=== PATIENT | female | born 1955 | race Caucasian/White ===

== ENCOUNTER 2019-12-26 11:54 | Observation (INO) ==
[2019-12-26] MEDS ORDERED: NS 1,000 ML, NS 1,000 ML IV ONE ×2 (12:19)
[2019-12-26 12:48] LABS: URINE SOURCE CLEAN CATCH
[2019-12-26 12:51] LABS: BASO# 0.06 X1000 (0.0-0.2); BASO% 1.2 % (0.0-0.8); EOS# 0.02 X1000 (0.0-0.7); EOS% 0.4 % (0.0-10.0); HEMATOCRIT 45.1 % (37.0-47.0); HEMOGLOBIN 15.7 g/dL (12.0-16.0); LYMPH% 21.4 % (20.5-51.1); MCH 30.6 PG (27-31); MCHC 34.8 g/dL (33-37); MCV 87.9 FL (81-99); MONO# 0.33 X1000 (0.11-0.59); MONO% 6.4 % (1.7-9.3); MPV 11.5 FL (7.4-10.4); NEUT# 3.64 X1000 (1.4-6.5); NEUT% 70.6 % (42.2-75.2); PLT 192 X1000 (130-400); RBC 5.13 XMIL (4.2-5.4); RDW 12.8 % (11.5-14.5); WBC 5.15 X1000 (4.8-10.8)
[2019-12-26 12:52] LABS: BILIRUBIN URINE NEGATIVE (NEGATIVE); BLOOD URINE NEGATIVE (NEGATIVE); COLOR STRAW; GLUCOSE URINE >1000 mg/dL (NEGATIVE); KETONE URINE 10 mg/dL (NEGATIVE); LEUKOCYTES URINE NEGATIVE (NEGATIVE); NITRITE URINE NEGATIVE (NEGATIVE); PROTEIN URINE NEGATIVE (NEGATIVE); SP GRAVITY URINE 1.028; TURBIDITY URINE CLEAR (CLEAR); UROBILINOGEN URINE NORMAL (NORMAL)
[2019-12-26 12:53] LABS: UR EPITHELIAL CELLS <10 /HPF (<10); URINE BACTERIA NEGATIVE /HPF; URINE RBC <10 /HPF (<10); URINE WBC <10 /HPF (<10)
[2019-12-26 12:56] LABS: ACETONE SERUM NEGATIVE (NEGATIVE)
--- NOTE | 2019-12-26 13:02 | Diag Imaging Result Doc PS360 ---
EXAM: CHEST-1 VIEW HISTORY: hyperglycemia TECHNIQUE: Single view COMPARISON: 11/15/2015 FINDINGS: The lungs are well expanded. The heart is not enlarged. The vessels are not distended. There are no infiltrates. No effusion identified. IMPRESSION: Negative exam. Electronically signed by Yohan Casey 12/26/2019 1:00 PM
[2019-12-26 13:05] LABS: AGAP 18; ALB/GLOB RATIO 1.7; ALBUMIN 4.2 g/dL (3.5-5.0); ALKALINE PHOSPHATASE 87 U/L (32-104); BUN 27 mg/dL (8-22); CALCIUM 9.7 mg/dL (8.8-10.2); CHLORIDE 88 mmol/L (98-107); COSMO 300; CREATININE 1.4 mg/dL (0.5-0.9); ESTIMATED GFR 38; GOT 15 U/L (10-30); GPT 26 U/L (10-36); POTASSIUM 4.9 mmol/L (3.5-5.1); SODIUM 127 mmol/L (136-145); TCO2 21 mmol/L (25-35); TOTAL BILIRUBIN 0.32 mg/dL (0.20-1.00); TOTAL PROTEIN 6.7 g/dL (6.3-8.3)
[2019-12-26 13:14] LABS: GLUCOSE 811 mg/dL (70-104)
[2019-12-26] MEDS ORDERED: HUMULIN R IV ONE (13:26)
[2019-12-26] MEDS ORDERED: NS 1,000 ML ONE ×2 (13:29→13:37)
--- NOTE | 2019-12-26 13:35 | PROVIDER DOCUMENTATION ---
This chart was entered by Juana Pena Scribe, acting as scribe for Guillermo Balderrama MD. HPI-General Adult - General Chief Complaint: High Blood Sugar Stated Complaint: HIGH BLOOD SUGAR NEAR SYNCOPE Time Seen by Provider: 12/26/19 12:16 Source: patient Allergies/Adverse Reactions: Patient Allergies Allergy/AdvReac Type Severity Reaction Status Date / Time No Known Allergies Allergy Verified 05/22/17 20:06 Home Medications: Home Medication List Medication Instructions Recorded Confirmed Last Taken Type Sulfamethoxazole/Trimethoprim 1 ea PO BID #20 tab 07/16/19 Unknown Rx [Bactrim Ds Tablet] - History of Present Illness -Gen Adult Nature of Presenting Problems: pt is a 64 yobf c/o high fsbs and poss UTI. pt sts she has been urinating frequently and has had excessive thirst for over a week. pt had labs drawn this am at Dr. Perez' office and sts she got call her fsbs was over 700. pt sts she has had weakness, and head pressure this am. pt has hx of DM. pt had butter grits, scrambled eggs w/florentino red hot, ham and toast w/apple butter this am for breakfast. pt is noncompliant to diet, still drinking regular cokes. Location of Pain/Injury: reports: head Pain Radiation: reports: no radiation Quality of Pain: reports: pressure Severity: reports: mild Onset/Duration: reports: last week Timing: reports: still present Context/Activities at Onset: reports: none Modifying Factors: improves with: nothing Associated Symptoms: reports: genitourinary problems, weakness, other (high fsbs, excessive thirst). denies: cough, diarrhea, fever/chills, nausea, shortness of breath, vomiting - Diabetes Related Context Context: reports: high blood sugar Review of Systems - Adult - REVIEW OF SYSTEMS - ADULT Constitutional: reports: no symptoms reported. denies: chills, fever, fatique Eyes: reports: no symptoms reported Ears, Nose, Mouth & Throat: reports: no symptoms reported Cardiovascular: reports: no symptoms reported. denies: chest pain, irregular heart rate, palpitations Respiratory: reports: no symptoms reported. denies: cough, shortness of breath, wheezing Gastrointestinal: reports: no symptoms reported. denies: diarrhea, nausea, vomiting Genitourinary: reports: see HPI, frequency. denies: dysuria, flank pain, urinary retention Musculoskeletal: reports: no symptoms reported Integumentary: reports: no symptoms reported Neurological: reports: see HPI, headache/migraines. denies: loss of balance, numbness, paresthesia Psychiatric: reports: no symptoms reported Endocrine: reports: see HPI, increased thirst, polyuria. denies: change in skin pigment, excessive sweating, goiter Hematologic/Lymphatic: reports: no symptoms reported Allergic/Immunologic: reports: no symptoms reported All Other Systems: Reviewed and Negative Past History - Adult - PAST MEDICAL HISTORY-ADULT Review of Records: reports: Nursing Assessment Review, Medications Reviewed, Social history reviewed & non-contributory. Major Childhood Illnesses: reports: denies history Cardiovascular: reports: HTN Respiratory: reports: denies history Gastrointestinal: reports: denies history Obstetrical/Gynecological: reports: denies history Genitourinary: reports: denies history Musculoskeletal: reports: denies history Neurological: reports: denies history Endocrine/Immune: reports: Diabetes Diabetes controlled by:: PO Meds Other Conditions: reports: denies history - PRIOR SURGERIES/PROCEDURES Surgical/Procedure History: reports: cholecystectomy, BTL - IMMUNIZATION STATUS Childhood Immunizations: See Nurse Assessment Flu Vaccine: See Nurse Assessment - FAMILY HISTORY Family History: reviewed, not pertinent - SOCIAL HISTORY Smoking: other (former smoker) Substance Use: none/never Physical Exam-General - PHYSICAL EXAM-ADULT Initial Vital Signs Reviewed: Yes - CONSTITUTIONAL General Appearance: appears well, alert, no apparent distress, obese. negative: lethargic, slow to respond, obtunded - EYES Eyes: PERRL/EOMI - HEAD, EARS, NOSE, MOUTH & THROAT HENMT: other (OP exam deferred due to COVID-19 pandemic) - NECK Neck: non-tender, full range of motion, supple - RESPIRATORY Respiratory: chest non-tender, lungs clear, normal breath sounds - CARDIOVASCULAR Cardiovascular: normal peripheral pulses, regular rate, rhythm - GASTROINTESTINAL (ABDOMEN) Abdominal Exam: normal bowel sounds, non tender, soft - MUSCULOSKELETAL Back Exam: normal inspection Extremity: normal range of motion, non-tender, normal inspection - SKIN Integumentary: normal color, normal turgor, warm/dry - NEUROLOGIC Neurologic: grossly normal, no motor/sensory deficits, other (health systems analyst II-XII norm) - PSYCHIATRIC Psych/Mental Status: normal mood/affect, normal thought content, normal thought process, oriented x 3 Progress - PLAN OF CARE/RESULTS Progress/Plan/Lab Results: Vital Signs - 8 hr 12/26/19 12:04 Temperature 98 F Pulse Rate 99 H Respiratory Rate 16 Blood Pressure 142/79 O2 Sat by Pulse Oximetry 98 Laboratory Results - last 24 hr 12/26/19 12:17 POC Glucose 500 H D Orders Category Date Time Status Nursing- Obtain EKG ONCE Care 12/26/19 12:22 Active CHEST-1 VIEW [RAD] Stat Exams 12/26/19 12:19 Ordered ACETONE SERUM [CHEM] Stat Lab 12/26/19 12:19 Uncollected CBC WITH DIFF [HEME] Stat Lab 12/26/19 12:19 Uncollected COMPREHENSIVE METABOLIC PANEL [CHEM] Stat Lab 12/26/19 12:19 Uncollected URINALYSIS [URINALYSIS] Stat Lab 12/26/19 12:19 Uncollected 0.9% Sodium Chloride Inj [Ns] 1,000 ml Med 12/26/19 12:19 Active 0.9% Sodium Chloride Inj [Ns] 1,000 ml IV 999 mls/hr Result Diagrams: 12/26/19 12:40 12/26/19 12:40 - EKG 1 Time of EKG reading by physician:: 12:36 EKG Read and Signed by:: Guillermo Balderrama EKG Interpretation (*Must complete 3 of following elements*): Normal Rate: 95 Rhythm: NSR [place]: normal QRS: normal NM Interval: normal ST Wave: normal - XRAY 1 XRAY Study: Chest Impression: Normal, See EMR Report ( EXAM: CHEST-1 VIEW HISTORY: hyper glycemia TECHNIQUE: Single view COMPARISON: 11/15/2015 FINDINGS: The lungs are well expanded. The heart is not enlarged. The vessels are not distended. There are no infiltrates. No effusion identified. IMPRESSION: Negative exam. Electronically signed by Yohan Casey 12/26/2019 1:00 PM) - CONSULTS/PCP/HOSPITALIST Notification #1 *Consult/PCP/Hospitalist*: Hospitalist DMM Time Discussed: 13:33 Consult Disposition: Admit Departure - Departure Date of Disposition Decision: 12/26/19 Time of Disposition Decision: 13:28 DIAGNOSIS: Uncontrolled type 2 DM with hyperosmolar nonketotic hyperglycemia Disposition: ADMITTED INPATIENT 09 Certified Medical Emergency: Emergent Condition: Fair Referrals and Follow-Ups: Nba Perez MD [Primary Care Provider] - - Critical Care Note This patient required my direct & personal management of CC.: No Attestation - Physician/ GABRIEL Attestation Patient care was provided by Advanced Practice Provider:: No The physician spent face to face time with patient:: Yes Advanced Practice Provider documentation review:: Supervising physician onsite and consulted in the evaluation and care of this patient. The physician did have a face to face encounter with the patient. This chart was documented by the indicated scribe, (Juana Pena Scribe) and accurately reflects the services I performed and decisions made by me, Guillermo Balderrama MD, as attested by the provider's signature.
[2019-12-26] MEDS ORDERED: POTASSIUM CHLORIDE 20 MEQ/SWI 20 MEQ/100 ML IVPB IV PRN (14:53)
[2019-12-26] MEDS ORDERED: D5 NS 1,000 ML IV PRN (14:53)
[2019-12-26] MEDS ORDERED: POTASSIUM CHLORIDE 20% LIQUID PO PRN (14:53)
[2019-12-26] MEDS ORDERED: D50W SYRINGE IV PRN (14:53)
[2019-12-26] MEDS ORDERED: ZOFRAN IV PRN (14:53)
[2019-12-26] MEDS ORDERED: COMPAZINE PO PRN (14:53)
[2019-12-26] MEDS ORDERED: MAGNESIUM SULFATE 2 GM/S.W.I. 2 GM/50 ML IVPB IV PRN (14:53)
[2019-12-26] MEDS ORDERED: SODIUM PHOSPHATE 30 MMOL in D5W 250 ML IV PRN (14:53)
[2019-12-26] MEDS ORDERED: HUMULIN R 100 UNIT in NS 100 ML IV SCH (14:53)
[2019-12-26] MEDS ORDERED: NS 1,000 ML IV SCH (14:53)
[2019-12-26] MEDS ORDERED: POTASSIUM CHLORIDE 40 MEQ/SWI 40 MEQ/100 ML IVPB IV PRN (14:53)
[2019-12-26] MEDS ORDERED: NS 1,000 ML IV ONE (15:52)
[2019-12-26] MEDS ORDERED: ATIVAN PO PRN (15:52)
--- NOTE | 2019-12-26 16:03 | HISTORY AND PHYSICAL ---
PRIMARY CARE PROVIDER: Dr. Nba Perez. CHIEF COMPLAINT: High blood sugar. HISTORY OF PRESENT ILLNESS: Ms. Tapia is a 64-year-old female who carries a past medical history of diabetes mellitus type 2, hypertension, who reports for the last week and a half she has been having polyuria and polydipsia. She went to see her PCP about it. He checked some labs and called her back today and told her to come to the ED secondary to elevated blood glucose levels. She reports she does check her sugars on a regular basis and then she told me she did know exactly how high they had been running. She reports she drinks regular sodas and loves sweets. Workup in the ED revealed a blood glucose level of 811 with a negative acetone level. She was given a bolus of regular insulin and we will start her on an insulin drip and monitor her closely on PVC. PAST MEDICAL HISTORY: 1. Hypertension. 2. Diabetes mellitus type 2. PAST SURGICAL HISTORY: Cholecystectomy and bilateral tubal ligation. FAMILY HISTORY: Reviewed and noncontributory. SOCIAL HISTORY: No tobacco, alcohol, or illicit drug use. ALLERGIES: No known drug allergies. MEDICATIONS: Home medications are being compiled. REVIEW OF SYSTEMS: Patient denies any headache, fever, chills, nausea, vomiting, diarrhea, constipation, shortness of breath, cough, sore throat, chest pain. No recent travel. No sick contacts. PHYSICAL EXAMINATION: VITAL SIGNS: Temperature is 98.3 degrees, heart rate 83, respirations 20, blood pressure 113/65, O2 is 98% on room air. GENERAL: Ms. Tapia is a 64-year-old female who is sitting up in the bed, in no acute distress. HEENT: Atraumatic, normocephalic. PERRL. NECK: Supple. Trachea midline. CARDIOVASCULAR: S1, S2 appreciated. No murmurs, gallops, rubs noted. RESPIRATORY: Lung sounds clear bilaterally. GI: Soft, nontender, nondistended. Positive bowel sounds 4 quadrants. EXTREMITIES: Lower extremities negative for edema. SKIN: Warm, dry, and intact. NEUROLOGIC: No focal deficits noted. DIAGNOSTIC DATA: Chest x-ray, negative exam. LABORATORY DATA: White count 5, hemoglobin and hematocrit 15 and 45, platelet count is 192,000. Sodium 127, potassium 4.9, chloride 88, bicarb 21, anion gap is 18, BUN 27, creatinine 1.4, blood glucose is 811. Urinalysis is negative for bacteria, negative for nitrites. Acetone level is negative. ASSESSMENT AND PLAN: 1. Hyperosmolar, nonketotic state. The patient will be aggressively hydrated. She will be placed on the DKA protocol for insulin drip, placed on PVC. 2. Uncontrolled diabetes mellitus with hyperglycemia. We will consult dietitian. Patient admits to drinking regular sodas and eating sweets. 3. Essential hypertension. We will continue home medications when verified. 4. Dehydration secondary to #1. 5. Further recommendation to follow physician evaluation, laboratory and diagnostic data. Dictated by GREGORIA Aguilar for Yolis Cruz MD cc: MD Nba Kimbrough MD
--- NOTE | 2019-12-26 16:37 | EKG Report ---
Test Performed on : 12/26/2019 12:31:12 PM Test Reason : ED. No order in [place] Blood Pressure : / mmHG Vent. Rate : 095 BPM Atrial Rate : 095 BPM P-R Int : 156 ms QRS Dur : 082 ms QT Int : 360 ms P-R-T Axes : 032 -02 035 degrees QTc Int : 452 ms Normal sinus rhythm. Normal ECG When compared with ECG of 15-NOV-2015 13:41, No significant change was found Unconfirmed Result
[2019-12-26] MEDS: NS 1,000 ML IV SCH ×3 (16:49→22:36)
[2019-12-26 17:37] LABS: CALCIUM 9.4 mg/dL (8.8-10.2); CREATININE 1.1 mg/dL (0.5-0.9); POTASSIUM 4.4 mmol/L (3.5-5.1)
[2019-12-26] MEDS: POTASSIUM CHLORIDE 10% LIQUID PO PRN (18:18)
[2019-12-26 20:37] LABS: CALCIUM 9.6 mg/dL (8.8-10.2); CREATININE 1.1 mg/dL (0.5-0.9); MAGNESIUM 1.9 mg/dL (1.5-2.7); PHOSPHORUS 2.2 mg/dL (2.7-4.5); POTASSIUM 3.9 mmol/L (3.5-5.1)
[2019-12-26 23:53] LABS: CALCIUM 9.1 mg/dL (8.8-10.2); POTASSIUM 4.1 mmol/L (3.5-5.1)
[2019-12-27] MEDS: POTASSIUM CHLORIDE 10% LIQUID PO PRN ×2 (00:28→04:16)
[2019-12-27 02:57] LABS: AGAP 10; BUN 17 mg/dL (8-22); CALCIUM 9.1 mg/dL (8.8-10.2); CHLORIDE 105 mmol/L (98-107); COSMO 285; CREATININE 0.9 mg/dL (0.5-0.9); ESTIMATED GFR > 60; GLUCOSE 236 mg/dL (70-104); POTASSIUM 4.2 mmol/L (3.5-5.1); SODIUM 138 mmol/L (136-145); TCO2 23 mmol/L (25-35)
[2019-12-27 06:10] LABS: HEMOGLOBIN A1C 11.4 % (4.8-6.0)
[2019-12-27] MEDS: NS 1,000 ML IV SCH (07:09)
[2019-12-27 08:16] LABS: AGAP 10; BUN 15 mg/dL (8-22); CALCIUM 8.9 mg/dL (8.8-10.2); CHLORIDE 107 mmol/L (98-107); COSMO 284; CREATININE 0.9 mg/dL (0.5-0.9); ESTIMATED GFR > 60; GLUCOSE 168 mg/dL (70-104); POTASSIUM 4.2 mmol/L (3.5-5.1); SODIUM 140 mmol/L (136-145); TCO2 23 mmol/L (25-35)
[2019-12-27] MEDS: TYLENOL PO PRN (09:45)
[2019-12-27] MEDS ORDERED: LEVEMIR SUBQ ONE (10:04)
[2019-12-27] MEDS: HUMULIN R SUBQ SCH ×5 (10:51→21:31)
--- NOTE | 2019-12-27 13:03 | PROGRESS NOTE ---
DATE: 12/27/2019 SUBJECTIVE: The patient states that she feels much better today. Her blood sugars are better. OBJECTIVE: Vital Signs: Temperature 98.3 degrees, blood pressure 111/79, heart rate 76, respirations 18, O2 saturations 100% on room air. General: This is an elderly female sitting up in bed in no acute distress. Heart: S1, S2 normal. Regular rate and rhythm. Lungs: Equal air entry bilaterally. No wheezing. No rales. No rhonchi. Abdomen: Positive bowel sounds. Soft, nontender, nondistended. Extremities: No edema. No cyanosis. Neurologic: The patient is alert and oriented x3. LABS: Sodium 140, potassium 4.2, BUN 15, creatinine 0.9. Anion gap of 10. Glucose of 168. Hemoglobin A1c of 11.4. ASSESSMENT AND PLAN: 1. Hyperosmolar hyperglycemic state. The patient has a hemoglobin A1c of 11.4. We will transition the patient to long-acting insulin. 2. Uncontrolled diabetes mellitus, type 2. The patient states that she has been on meformin for several years. Long-acting insulin will be initiated. We will also consult with the dietitian. The patient will need to follow up with her primary care physician for a referral to an reference investigator. 3. Hypertension. Controlled. Continue to monitor closely. 4. Anxiety disorder. Continue on Ativan as needed. 5. Deep vein thrombosis prophylaxis. We will start the patient on Lovenox. DISPOSITION: If the patient's blood glucoses are stable, she can be discharged home tomorrow. cc: Yolis Cruz MD MTDD
[2019-12-27] MEDS ORDERED: LEVEMIR SUBQ SCH (21:00)
[2019-12-28] MEDS: HUMULIN R SUBQ SCH ×3 (00:22→09:34)
[2019-12-28 07:07] LABS: AGAP 12; ALBUMIN 3.4 g/dL (3.5-5.0); BUN 13 mg/dL (8-22); CALCIUM 8.9 mg/dL (8.8-10.2); CHLORIDE 103 mmol/L (98-107); CHOLESTEROL 147 mg/dL (0-200); COSMO 277; CREATININE 0.9 mg/dL (0.5-0.9); ESTIMATED GFR > 60; GLUCOSE 127 mg/dL (70-104); HDL 41 mg/dL (45-65); LDL 82 mg/dL; PHOSPHORUS 3.2 mg/dL (2.7-4.5); POTASSIUM 3.9 mmol/L (3.5-5.1); SODIUM 138 mmol/L (136-145); TCO2 23 mmol/L (25-35); TRIGLYCERIDES 121 mg/dL (35-135); VLDL 24 mg/dL
[2019-12-28] MEDS ORDERED: LEVEMIR SUBQ SCH (09:00)
[2019-12-28] MEDS: TYLENOL PO PRN (09:42)
[2019-12-28 11:37] VITALS: BP 146/99
--- NOTE | 2019-12-28 11:45 | Diag Imaging Result Doc PS360 ---
EXAM: CT MAXILLOFACIAL(SINUS) W/O CO INDICATION: sinusitis TECHNIQUE: COMPARISON: 11/17/2015 FINDINGS: There is only trace sinus sinus mucosal thickening at the floor of the left maxillary sinus. All of the paranasal sinuses are clear, otherwise. There is no air-fluid level. The ostiomeatal units are patent. There is no significant nasal septal deviation. The facial bones are intact. The mastoid air cells are clear. The orbits and globes are unremarkable. The surrounding soft tissues are grossly unremarkable. IMPRESSION: Very minimal sinus mucosal thickening at the floor of the left maxillary sinus. Essentially normal paranasal sinus CT, otherwise. Electronically signed by Raul Pena 12/28/2019 11:42 AM
== END 2019-12-28 13:05 | disposition home or self-care (01) | DRG 639 ==
LOC: ED 11:54 → 2N 14:13 → INTOOBSV 14:13
PROVIDERS: ATTEND Internal Medicine